=== PATIENT | female | born 1990 | race Two or more races ===

== ENCOUNTER 2016-09-28 23:06 | Emergency (ER) | payer MEDICAID, OTHER ==
[~2016-09-28] VITALS: Ht 149.9 cm; Wt 62.6 kg
[~2016-09-28 23:06] MED LIST: AMOX500C2; NORETAB32
[2016-09-28 23:57] LABS: Urine RBC None Seen /hpf (0 - 4)
[2016-09-29 00:09] LABS: Urine Bilirubin Negative (Negative); Urine Blood Negative /uL (Negative); Urine Color Yellow (Yellow); Urine Glucose Normal (Normal); Urine Ketone 4+ (Negative); Urine Mucus FEW (None Seen); Urine Nitrite Negative (Negative); Urine Squamous Epithelial Cell FEW /hpf (<5); Urine Urobilinogen Normal (Negative)
[2016-09-29 00:12] LABS: Basophils # (auto) 0.1 uL; Basophils % (auto) 1.5 % (0.0-2.0); Eosinophils # (auto) 0.1 uL; Eosinophils % (auto) 1.3 % (0.0-7.0); Hematocrit 37.4 % (36.0-46.0); Hemoglobin 12.4 g/dL (12.2-16.2); Lymphocytes # (auto) 2.8 uL; Lymphocytes % (auto) 27.9 % (10.0-50.0); Mean Corpuscular Hgb Conc. 33.2 g/dL (32.0-36.0); Mean Corpuscular Volume 93.5 fL (80.0-100.0); Mean Platelet Volume 8.2 fL (7.4-10.4); Monocytes # (auto) 0.2 uL; Monocytes % (auto) 2.3 % (0.0-12.0); Neutrophils # (auto) 6.8 uL; Platelet Count (auto) 249 10^3/uL (140-450); Red Cell Distribution Width 11.7 % (11.6-16.0)
[2016-09-29 00:32] LABS: Albumin 3.4 g/dL (3.4-5.0); BUN/Creatinine Ratio 13.5; Calcium 8.7 mg/dL (8.5-10.1); Potassium 3.8 mmol/L (3.5-5.1)
[2016-09-29 00:35] LABS: Bilirubin, Total 0.3 mg/dL (0.2-1.0); Total Protein 7.3 g/dL (6.4-8.2)
[2016-09-29 02:08] VITALS: BP 94/63
== END 2016-09-29 02:30 | disposition left against medical advice (07) ==
LOC: ER 23:13
DX: O26.891 Other specified pregnancy related conditions, first trimester (principal); R10.9 Unspecified abdominal pain; O09.891 Supervision of other high risk pregnancies, first trimester; Z3A.13 13 weeks gestation of pregnancy
CPT/HCPCS: 36415; 76801; 80053; 81001; 84702; 85025; 85049

== ENCOUNTER 2017-04-27 17:38 | Emergency (ER) | payer MEDICAID ==
[~2017-04-27] VITALS: Ht 149.9 cm; Wt 63.5 kg
[2017-04-27 18:43] LABS: Basophils # (auto) 0 uL; Basophils % (auto) 0.6 % (0.0-2.0); CONDITION Y; Eosinophils # (auto) 0.2 uL; Eosinophils % (auto) 2.6 % (0.0-7.0); Hematocrit 39.9 % (36.0-46.0); Hemoglobin 13.5 g/dL (12.2-16.2); Lymphocytes # (auto) 2.1 uL; Lymphocytes % (auto) 30.8 % (10.0-50.0); Mean Corpuscular Hemoglobin 31.8 pg (28.0-32.0); Mean Corpuscular Hgb Conc. 33.7 g/dL (32.0-36.0); Mean Corpuscular Volume 94.3 fL (80.0-100.0); Mean Platelet Volume 8.6 fL (7.4-10.4); Monocytes # (auto) 0.4 uL; Monocytes % (auto) 5.7 % (0.0-12.0); Neutrophils # (auto) 4.1 uL; Neutrophils % (auto) 60.3 % (37.0-80.0); Platelet Count (auto) 286 10^3/uL (140-450); Red Cell Distribution Width 13.4 % (11.6-16.0); White Blood Cell 6.7 10^3/uL (4.4-10.8)
[2017-04-27 19:05] LABS: Albumin 3.4 g/dL (3.4-5.0); Alkaline Phosphatase 80 U/L (45-117); Anion Gap 6 (5-15); Aspartate Aminotransferase 23 U/L (15-37); Bilirubin, Total 0.3 mg/dL (0.2-1.0); Blood Urea Nitrogen 9 mg/dL (7-18); Calcium 8.9 mg/dL (8.5-10.1); Carbon Dioxide 29 mmol/L (21-32); Chloride 104 mmol/L (98-107); GFR African American 130 mL/min; GFR Non-African American 108 mL/min; Glucose 91 mg/dL (74-106); Magnesium 1.9 mg/dL (1.6-2.6); Sodium 139 mmol/L (136-145); Total Protein 7.3 g/dL (6.4-8.2)
[2017-04-27 21:19] VITALS: BP 108/76
== END 2017-04-27 21:27 | disposition home or self-care (01) ==
LOC: ER 17:38 → EDBD 17:38 → ER 21:27
DX: K21.9 Gastro-esophageal reflux disease without esophagitis (principal); Z86.718 Personal history of other venous thrombosis and embolism
CPT/HCPCS: 36415; 71020; 80053; 83735; 84484; 85025; 93005

== ENCOUNTER 2018-10-14 15:30 | Emergency (ER) | payer MEDICAID ==
[~2018-10-14] VITALS: Ht 149.9 cm; Wt 59.0 kg
[2018-10-14 15:48] VITALS: BP 114/73
[2018-10-14] MEDS ORDERED: ACETAMINOPHEN 325 MG TAB PO ONE (17:00)
== END 2018-10-14 17:14 | disposition home or self-care (01) ==
LOC: EDBD 15:30 → ER 15:32
DX: S00.11XA Contusion of right eyelid and periocular area, initial encounter (principal); S06.9X9A Unspecified intracranial injury with loss of consciousness of unspecified duration, initial encounter; Y08.89XA Assault by other specified means, initial encounter; Y93.89 Activity, other specified; Y99.8 Other external cause status; Y92.89 Other specified places as the place of occurrence of the external cause
CPT/HCPCS: 70450; 70486; 81025